=== PATIENT | male | born 1945 | race Caucasian/White ===

== ENCOUNTER 2018-12-31 09:22 | Day surgery (SDC) | payer MEDICARE ==
[~2018-12-31 09:22] MED LIST: FURO20TA4 PO; OMEP20TA25 PO; SIMV10TA97 PO; WARF3TAB59 PO; WARF6TAB49 PO
[2018-12-31 10:15] LABS: HEMATOCRIT 32.4 % (42-54); MEAN CORPUSCULAR HGB CONC 33.5 g/dL (32.0-36.0); MEAN CORPUSCULAR VOLUME 92.5 fL (79-99); PLATELET COUNT (AUTO) 425 K/uL (130-400); RED CELL DISTRIBUTION WIDTH 14.7 % (11.0-15.5); WHITE BLOOD COUNT (AUTO) 4.4 K/uL (4.8-10.8)
[2018-12-31 10:26] LABS: INR 1.05 (0.85-1.15); PARTIAL THROMBOPLASTIN TIME 34.2 SEC (26.3-35.5)
--- NOTE | 2018-12-31 12:45 | NUR ---
CT GD LT LUNG BX PROCEDURE PERFORMED BY DR Sheri NEGRON. PUNCTURE SITE LT LOWER BACK AND PATIENT TOLERATED PROCEDURE WELL. SPECIMEN X 3 COLLECTED AND SENT TO LAB. END OF PROCEDURE AT 1230. BIOPSY NEEDLE REMOVED AND DRESSING APPLIED. NO BLEEDING NOTED. REPORT GIVEN TO Valerie CORDOVA RN AND PATIENT TRANSPORTED TO DAY PATIENT RM 7 VIA BED T 1245. AAO X3 WITH NO C/O PAIN.
== END 2018-12-31 14:40 | disposition home or self-care (01) ==
LOC: DAH 09:22 → EDSTATUS 10:00 → DAH 14:40
PROVIDERS: ATTEND Internal Medicine Hematology & Oncology
DX: C34.12 Malignant neoplasm of upper lobe, left bronchus or lung (principal); N40.0 Benign prostatic hyperplasia without lower urinary tract symptoms; C62.90 Malignant neoplasm of unspecified testis, unspecified whether descended or undescended; C61 Malignant neoplasm of prostate; I82.402 Acute embolism and thrombosis of unspecified deep veins of left lower extremity; Z98.890 Other specified postprocedural states; Z79.899 Other long term (current) drug therapy; Z80.51 Family history of malignant neoplasm of kidney; Z80.42 Family history of malignant neoplasm of prostate; Z82.49 Family history of ischemic heart disease and other diseases of the circulatory system
CPT/HCPCS: 32405; 36415; 77012; 85027; 85610; 85730; 88305; A4215; A4221; A4222; A4223; A4663

== ENCOUNTER 2019-05-03 18:22 | Inpatient (IN) | payer MEDICARE ==
[~2019-05-03] VITALS: Ht 182.9 cm; Wt 64.0 kg
[2019-05-03] MEDS ORDERED: ZOSYN 3.375GM+NS 50ML 50 ML IV ONE ×2 (19:21→19:30)
[2019-05-03] MEDS ORDERED: VANCOMYCIN 1GM+NS 250ML 250 ML IV ONE (19:21)
[2019-05-03 19:25] LABS: HEMATOCRIT 25.1 % (42-54); LYMPHOCYTES % (AUTO) 13.2 % (21.0-51.0); MEAN CORPUSCULAR HEMOGLOBIN 33.9 pg (27.0-33.0); MEAN CORPUSCULAR HGB CONC 33.5 g/dL (32.0-36.0); MEAN CORPUSCULAR VOLUME 101.2 fL (79-99); MONOCYTES % (AUTO) 0.9 % (3.0-13.0); NEUTROPHILS % (AUTO) 74.9 % (40.0-77.0); PLATELET COUNT (AUTO) 424 K/uL (130-400); RED BLOOD CELL COUNT(AUTO) 2.48 MIL/uL (4.50-6.20); RED CELL DISTRIBUTION WIDTH 19.1 % (11.0-15.5); WHITE BLOOD COUNT (AUTO) 2.3 K/uL (4.8-10.8)
[2019-05-03 19:30] LABS: ALBUMIN 2.5 g/dL (3.5-5.0); BILIRUBIN,TOTAL 0.4 mg/dL (0.2-1.0); CREATININE 0.9 mg/dL (0.5-1.5); TOTAL PROTEIN, SERUM 6.2 g/dL (6.0-8.3)
[2019-05-03 19:34] LABS: INR 1.88 (0.85-1.15); PARTIAL THROMBOPLASTIN TIME 44.1 SEC (26.3-35.5); PROTHROMBIN TIME 19.8 SEC (9.6-11.6)
[2019-05-03] MEDS ORDERED: IPRATROPIUM/ALBUTEROL SULFATE 3 ML SOLUTION IH ONE (19:50)
[2019-05-03] MEDS ORDERED: POTASSIUM BICARB/CIT AC 25 MEQ TABLET.EFF ONE (20:00)
[2019-05-03 20:03] LABS: BAND NEUTROPHILS % (MANUAL) 3 % (0-2); LYMPHOCYTES % (MANUAL) 15 % (22-44); MAN.DIFF COMMENT-IMPRESSION MANUAL DIFFERENTIAL; MONOCYTES % (MANUAL) 2 % (2-9); SEGMENTED NEUTROPHILS % 80 % (40-70)
[2019-05-03 20:04] LABS: PLATELET MORPHOLOGY COMMENT ADEQUATE
[2019-05-03 20:11] LABS: ABG HCO3 23.6 mmol/L (21.0-28.0); ABG OXYGEN SATURATION 82.5 % (95.0-99.0); ABG PCO2 36 mmHg (35-48)
[2019-05-03] MEDS ORDERED: DILTIAZEM HCL 125 MG/25 ML VIAL IV ONE (20:30)
[2019-05-03] MEDS ORDERED: SODIUM CHLORIDE 0.9% 100 ML IV ONE (20:31)
[2019-05-03] MEDS: LEVOFLOXACIN 750 MG/D5W 150 ML 150 ML IV SCH (21:00)
[2019-05-03] MEDS ORDERED: SODIUM CHLORIDE 0.9% 1000ML 1,000 ML IV SCH (21:15)
[2019-05-03] MEDS ORDERED: AMIODARONE HCL 150 MG in DEXTROSE 5%-WATER 100 ML IV SCH (21:15)
[2019-05-03] MEDS ORDERED: AMIODARONE HCL 360 MG in DEXTROSE 5%-WATER 200 ML IV SCH (21:15)
[2019-05-03] MEDS ORDERED: AMIODARONE HCL 50 MG/ML 3 ML VIAL ONE (21:24)
[2019-05-03 23:26] LABS: HEMATOCRIT 22.4 % (42-54)
[2019-05-03 23:38] LABS: MAGNESIUM 1.1 mg/dL (1.80-2.40)
[2019-05-04] VITALS (16 sets, daily range): BP systolic 107–150; BP diastolic 44–81
[2019-05-04] MEDS ORDERED: LIDOCAINE HCL-MPF 1% 2ML VIAL ONE ×2 (00:56→05:40)
[2019-05-04] MEDS ORDERED: POTASSIUM CHLORIDE 20MEQ/100ML 100 ML IV ONE (00:56)
[2019-05-04 00:58] LABS: ABG HCO3 25.8 mmol/L (21.0-28.0); ABG OXYGEN SATURATION 97.1 % (95.0-99.0); ABG PCO2 38 mmHg (35-48)
[2019-05-04] MEDS ORDERED: IPRATROPIUM 0.5 MG/2.5 ML INH IH ONE ×2 (01:09→09:45)
[2019-05-04 01:40] LABS: APPEARANCE,URINE Cloudy (CLEAR); BILIRUBIN,URINE Negative (NEGATIVE); COLOR,URINE Yellow (YELLOW); GLUCOSE, URINE (UA) Negative (NEGATIVE); KETONES,URINE Negative (NEGATIVE); LEUKOCYTE ESTERASE ,URINE Negative (NEGATIVE); NITRATE,URINE Negative (NEGATIVE); OCCULT BLOOD,URINE Negative (NEGATIVE); PROTEIN,URINE POS 1+ mg/dL (NEGATIVE); UROBILINOGEN,URINE 0.2 mg/dL (0.2-1.0)
[2019-05-04 01:48] LABS: BACTERIA,URINE Few /HPF (None Seen); MUCUS,URINE Few LPF (None Seen); RBC,URINE 0-1 /HPF (0-1); SQUAMOUS EPITHELIAL CELL,UR 0-2 /HPF (0-2); WBC,URINE 0-1 /HPF (0-1)
[2019-05-04] MEDS ORDERED: LEVOFLOXACIN 750 MG/D5W 150 ML 150 ML ONE (02:54)
[2019-05-04] MEDS ORDERED: ZOSYN 3.375GM+NS 50ML 50 ML IV SCH (03:00)
[2019-05-04] MEDS ORDERED: AMIODARONE HCL 450 MG in DEXTROSE 5%-WATER 250 ML IV SCH (03:00)
[2019-05-04] MEDS ORDERED: MAGNESIUM 2GM PREMIX 50ML 50 ML IV ONE ×2 (03:01→10:33)
[2019-05-04 05:19] LABS: BASOPHILS % (AUTO) 1.3 % (0.0-5.0); LYMPHOCYTES % (AUTO) 23.1 % (21.0-51.0); MEAN CORPUSCULAR HGB CONC 32.8 g/dL (32.0-36.0); MEAN CORPUSCULAR VOLUME 100.5 fL (79-99); MONOCYTES % (AUTO) 3.8 % (3.0-13.0); NEUTROPHILS % (AUTO) 46.2 % (40.0-77.0); PLATELET COUNT (AUTO) 322 K/uL (130-400); RED CELL DISTRIBUTION WIDTH 19.2 % (11.0-15.5)
[2019-05-04 05:34] LABS: ALBUMIN 1.8 g/dL (3.5-5.0); BILIRUBIN,TOTAL 0.2 mg/dL (0.2-1.0); CREATININE 0.5 mg/dL (0.5-1.5); MAGNESIUM 1.5 mg/dL (1.80-2.40); PHOSPHORUS 1.9 mg/dL (2.5-4.9); TOTAL PROTEIN, SERUM 4.9 g/dL (6.0-8.3)
[2019-05-04 05:36] LABS: POTASSIUM 2.7 mmol/L (3.5-5.1)
[2019-05-04 05:38] LABS: HEMATOCRIT 20.1 % (42-54); WHITE BLOOD COUNT (AUTO) 0.8 K/uL (4.8-10.8)
[2019-05-04] MEDS ORDERED: POTASSIUM CHLORIDE 10MEQ/100ML 100 ML IV ONE ×4 (05:39→14:39)
[2019-05-04] MEDS ORDERED: ZOSYN 3.375GM+NS 50ML 50 ML IV ONE (05:54)
[2019-05-04] MEDS ORDERED: POTASSIUM PHOSPHATE 20 MMOL in SODIUM CHLORIDE 0.9% 250 ML IV SCH (07:15)
[2019-05-04] MEDS ORDERED: SODIUM CHLORIDE 0.9% 250 ML IV ONE ×2 (08:41→12:39)
[2019-05-04] MEDS ORDERED: POLYETHYLENE GLYCOL 3350 17 GM POWD.PACK PO SCH (09:00)
[2019-05-04] MEDS ORDERED: IPRATROPIUM/ALBUTEROL SULFATE 3 ML SOLUTION IH SCH (12:00)
[2019-05-04] MEDS ORDERED: SODIUM CHLORIDE 0.9% 1000ML 1,000 ML IV ONE (14:50)
[2019-05-04] MEDS ORDERED: ACETAMINOPHEN 325 MG TAB PO PRN (15:30)
[2019-05-04] MEDS ORDERED: ACETAMINOPHEN-CODEINE 300/30MG TAB PO PRN (15:30)
[2019-05-04] MEDS ORDERED: ONDANSETRON HCL 4 MG/2 ML VIAL IVP PRN (15:30)
[2019-05-04] MEDS: SODIUM CHLORIDE 0.9% 1000ML 1,000 ML IV SCH ×2 (15:30→20:11)
[2019-05-04] MEDS ORDERED: GLUCAGON 1MG KIT 1 MG ML IM PRN (15:30)
[2019-05-04] MEDS ORDERED: DEXTROSE 50%-WATER 50 ML DISP.SYRIN IV PRN (15:30)
[2019-05-04] MEDS ORDERED: VANCOMYCIN PROTOCOL PER PHARMACY IV SCH (15:30)
[2019-05-04] MEDS ORDERED: HYDRALAZINE HCL 20 MG/ML VIAL IV PRN (15:30)
[2019-05-04] MEDS ORDERED: MAGNESIUM 2GM PREMIX 50ML 50 ML IV PRN (15:30)
[2019-05-04] MEDS ORDERED: IPRATROPIUM/ALBUTEROL SULFATE 3 ML SOLUTION IH PRN (15:30)
[2019-05-04] MEDS ORDERED: LACTULOSE 20 GM/30 ML UDCUP PO PRN (15:30)
[2019-05-04] MEDS: ZOSYN 3.375GM+NS 50ML 50 ML IV SCH ×3 (15:30→23:51)
[2019-05-04] MEDS ORDERED: ENOXAPARIN SODIUM 40 MG/0.4 ML SYRINGE SQ ONE (15:48)
[2019-05-04] MEDS ORDERED: CEFEPIME HCL 2 GM VIAL ONE (15:48)
[2019-05-04] MEDS ORDERED: SODIUM CHLORIDE 0.9% 100 ML IV ONE (15:50)
[2019-05-04] MEDS ORDERED: CEFEPIME HCL 2 GM VIAL IVP SCH (16:00)
[2019-05-04] MEDS ORDERED: ENOXAPARIN SODIUM 40 MG/0.4 ML SYRINGE SQ SCH (16:24)
[2019-05-04] MEDS: INSULIN HUMULIN R 100 UNIT/ML 3ML SQ SCH ×2 (16:30→20:12)
[2019-05-04] MEDS ORDERED: LIDOCAINE HCL-MPF 1% 2ML VIAL IV PRN (17:15)
--- NOTE | 2019-05-04 17:26 | NUR ---
patient not given miralax due to patient having diarrhea; dowel maker junito enriquez notified
[2019-05-04] MEDS ORDERED: DEXMEDETOMIDINE HCL 200 MCG in SODIUM CHLORIDE 0.9% 50 ML IV SCH (17:45)
[2019-05-04] MEDS ORDERED: PHARMACY COMMUNICATION MISC SCH (17:45)
[2019-05-04] MEDS ORDERED: COMPOUND PO MISCELLANEOUS 1 EACH MISC MISC PRN (18:00)
[2019-05-04] MEDS: VANCOMYCIN 1GM+NS 250ML 250 ML IV SCH (18:13)
[2019-05-04] MEDS: METRONIDAZOLE 500MG/100ML BAG 100 ML IV SCH (18:14)
[2019-05-04] MEDS: VANCOMYCIN 250MG/5ML ORAL SOLUTION 40ML PO SCH ×2 (18:45)
[2019-05-04 19:29] LABS: HEMATOCRIT 28.9 % (42-54)
[2019-05-04] MEDS ORDERED: SODIUM CHLORIDE 0.9% 500ML 500 ML IV ONE (19:42)
[2019-05-04] MEDS: POTASSIUM CHLORIDE 20 MEQ ERTAB PO PRN (20:11)
[2019-05-04] MEDS ORDERED: PHYTONADIONE 10 MG/1 ML AMP IV SCH (21:00)
[2019-05-04] MEDS: PHYTONADIONE 10 MG in SODIUM CHLORIDE 0.9% 50 ML SQ SCH (21:26)
[2019-05-04] MEDS: LEVOFLOXACIN 750 MG/D5W 150 ML 150 ML IV SCH (21:42)
[2019-05-04] MEDS ORDERED: FUROSEMIDE 10 MG/ML 4ML VIAL IV SCH (23:30)
[2019-05-05] VITALS (45 sets, daily range): BP systolic 77–128; BP diastolic 42–95
[2019-05-05] MEDS: VANCOMYCIN 250MG/5ML ORAL SOLUTION 40ML PO SCH ×10 (00:01→23:19)
[2019-05-05] MEDS: POTASSIUM CHLORIDE 20 MEQ ERTAB PO PRN ×4 (00:48→09:09)
[2019-05-05] MEDS: METRONIDAZOLE 500MG/100ML BAG 100 ML IV SCH ×3 (01:32→17:35)
[2019-05-05] MEDS ORDERED: FUROSEMIDE 10 MG/ML 4ML VIAL ONE (03:46)
[2019-05-05 04:24] LABS: MEAN CORPUSCULAR HEMOGLOBIN 32.6 pg (27.0-33.0); MEAN CORPUSCULAR HGB CONC 34.3 g/dL (32.0-36.0); PLATELET COUNT (AUTO) 271 K/uL (130-400); RED BLOOD CELL COUNT(AUTO) 2.21 MIL/uL (4.50-6.20); RED CELL DISTRIBUTION WIDTH 21.2 % (11.0-15.5)
[2019-05-05 05:06] LABS: WHITE BLOOD COUNT (AUTO) 1.1 K/uL (4.8-10.8)
[2019-05-05 05:17] LABS: CREATININE 0.5 mg/dL (0.5-1.5); MAGNESIUM 1.5 mg/dL (1.80-2.40); PHOSPHORUS 1.6 mg/dL (2.5-4.9)
[2019-05-05 05:22] LABS: POTASSIUM 2.4 mmol/L (3.5-5.1)
[2019-05-05] MEDS: POTASSIUM CHLORIDE 20MEQ/100ML 100 ML IV PRN ×3 (05:35→20:04)
[2019-05-05] MEDS: POTASSIUM CHLORIDE 10% ELIXIR 20 MEQ/15 ML UDCUP PO PRN ×2 (05:35→20:14)
[2019-05-05] MEDS: INSULIN HUMULIN R 100 UNIT/ML 3ML SQ SCH ×4 (07:30→20:15)
[2019-05-05] MEDS: ZOSYN 3.375GM+NS 50ML 50 ML IV SCH ×3 (09:06→23:19)
[2019-05-05] MEDS: SODIUM CHLORIDE 0.9% 1000ML 1,000 ML IV SCH ×2 (09:06→20:15)
[2019-05-05] MEDS: VANCOMYCIN 1GM+NS 250ML 250 ML IV SCH ×2 (09:10→20:04)
[2019-05-05] MEDS: PANTOPRAZOLE SODIUM 40 MG TABLET.DR PO SCH (09:11)
[2019-05-05 10:15] LABS: HEMATOCRIT 26.3 % (42-54)
[2019-05-05 10:35] LABS: ABG BASE EXCESS 8.7 mmol/L (-2.0-3.0); ABG OXYGEN SATURATION 99.2 % (95.0-99.0); ABG PCO2 39 mmHg (35-48)
[2019-05-05] MEDS: TBO-FILGRASTIM 480 MCG/0.8 ML ML SQ SCH (11:02)
[2019-05-05] MEDS ORDERED: AMIODARONE HCL 200 MG TABLET PO SCH (13:00)
[2019-05-05] MEDS ORDERED: POTASSIUM PHOS 15 mMOL+NS250ML 250 ML IV ONE (14:00)
[2019-05-05] MEDS ORDERED: FOLI1 PO (14:18)
[2019-05-05] MEDS ORDERED: WARF3TAB59 PO (14:18)
[2019-05-05] MEDS ORDERED: WARF6TAB49 PO (14:18)
[2019-05-05] MEDS ORDERED: OMEP20TA25 PO (14:18)
[2019-05-05] MEDS ORDERED: FURO20TA4 PO (14:18)
[2019-05-05] MEDS: DOXYCYCLINE 100MG+NS 250ML 250 ML IV SCH (16:04)
[2019-05-05] MEDS: SPIRONOLACTONE 25 MG TAB PO SCH ×2 (16:05→20:14)
--- NOTE | 2019-05-05 16:49 | NUR ---
INITIAL: Chart reviewed. pt currently in isolation, EC is friend Allan Cruz. Per Mr Cruz pt lives alone in a first floor triplex @ [facility]. Prior to admission was independent and not using any DME. Per Mr Cruz, friends and neighbors assist Mr Eric mccormick transportation and grocery shopping if needed. Pt does have a sister Effie in [place] but they do not communicate. pt currently DNR/DNI. CM to continue to follow pt's progress. Addendum: 05/05/19 at 1657 by HIMANSHU CLARKE Amended: Links added.
[2019-05-05] MEDS: IPRATROPIUM 0.5 MG/2.5 ML INH IH SCH (18:00)
[2019-05-05 19:20] LABS: MAGNESIUM 1.8 mg/dL (1.80-2.40)
[2019-05-05 19:23] LABS: POTASSIUM 2.3 mmol/L (3.5-5.1)
[2019-05-05 19:27] LABS: HEMATOCRIT 24.5 % (42-54)
[2019-05-05] MEDS: PHYTONADIONE 10 MG in SODIUM CHLORIDE 0.9% 50 ML SQ SCH (20:13)
[2019-05-05] MEDS: MAGNESIUM 2GM PREMIX 50ML 50 ML IV SCH (20:13)
[2019-05-05] MEDS: AMIODARONE HCL 200 MG TABLET PO SCH (20:14)
[2019-05-05] MEDS: POTASSIUM CHLORIDE 40 MEQ in SODIUM CHLORIDE 0.9% 1000ML 980 ML IV SCH ×2 (20:45→22:15)
[2019-05-06] VITALS (22 sets, daily range): BP systolic 122–158; BP diastolic 56–89
[2019-05-06 00:23] LABS: MAGNESIUM 2.2 mg/dL (1.80-2.40)
[2019-05-06 00:29] LABS: POTASSIUM 2.9 mmol/L (3.5-5.1)
[2019-05-06 00:35] LABS: HEMATOCRIT 23.8 % (42-54)
[2019-05-06] MEDS: DOXYCYCLINE 100MG+NS 250ML 250 ML IV SCH ×2 (02:00→12:42)
[2019-05-06] MEDS: METRONIDAZOLE 500MG/100ML BAG 100 ML IV SCH ×3 (02:11→17:07)
[2019-05-06] MEDS: VANCOMYCIN 250MG/5ML ORAL SOLUTION 40ML PO SCH ×6 (05:55→17:07)
[2019-05-06] MEDS: POTASSIUM CHLORIDE 40 MEQ in SODIUM CHLORIDE 0.9% 1000ML 980 ML IV SCH ×2 (05:56→17:07)
[2019-05-06] MEDS: IPRATROPIUM 0.5 MG/2.5 ML INH IH SCH ×4 (06:00→23:38)
[2019-05-06] MEDS: INSULIN HUMULIN R 100 UNIT/ML 3ML SQ SCH ×4 (06:56→21:00)
[2019-05-06 08:27] LABS: BASOPHILS % (AUTO) 0.4 % (0.0-5.0); EOSINOPHILS % (AUTO) 0.1 % (0.0-8.0); HEMATOCRIT 24.1 % (42-54); LYMPHOCYTES % (AUTO) 3.3 % (21.0-51.0); MEAN CORPUSCULAR HEMOGLOBIN 32.5 pg (27.0-33.0); MEAN CORPUSCULAR HGB CONC 33.6 g/dL (32.0-36.0); MEAN CORPUSCULAR VOLUME 96.8 fL (79-99); NEUTROPHILS % (AUTO) 90.4 % (40.0-77.0); PLATELET COUNT (AUTO) 232 K/uL (130-400); RED BLOOD CELL COUNT(AUTO) 2.49 MIL/uL (4.50-6.20); RED CELL DISTRIBUTION WIDTH 21.4 % (11.0-15.5); WHITE BLOOD COUNT (AUTO) 10.7 K/uL (4.8-10.8)
[2019-05-06 08:43] LABS: CREATININE 0.4 mg/dL (0.5-1.5); MAGNESIUM 1.6 mg/dL (1.80-2.40); PHOSPHORUS 1.6 mg/dL (2.5-4.9)
[2019-05-06 08:49] LABS: POTASSIUM 2.6 mmol/L (3.5-5.1)
[2019-05-06] MEDS: POTASSIUM CHLORIDE 20 MEQ ERTAB PO PRN (08:55)
[2019-05-06] MEDS: POTASSIUM CHLORIDE 20MEQ/100ML 100 ML IV PRN (08:56)
[2019-05-06] MEDS: ZOSYN 3.375GM+NS 50ML 50 ML IV SCH ×2 (08:56→17:07)
[2019-05-06] MEDS: PANTOPRAZOLE SODIUM 40 MG TABLET.DR PO SCH (08:56)
[2019-05-06] MEDS: SPIRONOLACTONE 25 MG TAB PO SCH ×2 (08:57→21:26)
[2019-05-06] MEDS: FLUCONAZOLE 400 MG/NS 200 ML 200 ML IV SCH (08:57)
[2019-05-06] MEDS: AMIODARONE HCL 200 MG TABLET PO SCH ×2 (08:58→21:26)
[2019-05-06] MEDS ORDERED: POTASSIUM PHOS 15 mMOL+NS250ML 250 ML IV PRN ×2 (09:30→13:15)
[2019-05-06] MEDS: VANCOMYCIN 1GM+NS 250ML 250 ML IV SCH ×2 (09:35→21:26)
[2019-05-06] MEDS: TBO-FILGRASTIM 480 MCG/0.8 ML ML SQ SCH (09:51)
[2019-05-06] MEDS: LACTOBACILLUS RHAMNOSUS GG 1 EACH CAP.SPRINK PO SCH ×2 (17:06→21:27)
[2019-05-06 18:53] LABS: MAGNESIUM 1.8 mg/dL (1.80-2.40)
[2019-05-06] MEDS: PHYTONADIONE 10 MG in SODIUM CHLORIDE 0.9% 50 ML SQ SCH (21:28)
[2019-05-07] VITALS (14 sets, daily range): BP systolic 118–162; BP diastolic 53–104
[2019-05-07] MEDS: ZOSYN 3.375GM+NS 50ML 50 ML IV SCH ×3 (00:12→14:45)
[2019-05-07] MEDS: VANCOMYCIN 250MG/5ML ORAL SOLUTION 40ML PO SCH ×10 (00:12→23:49)
[2019-05-07] MEDS: METRONIDAZOLE 500MG/100ML BAG 100 ML IV SCH ×3 (00:13→16:26)
[2019-05-07] MEDS: DOXYCYCLINE 100MG+NS 250ML 250 ML IV SCH ×2 (00:13→14:38)
[2019-05-07] MEDS: POTASSIUM CHLORIDE 40 MEQ in SODIUM CHLORIDE 0.9% 1000ML 980 ML IV SCH ×3 (01:20→23:49)
[2019-05-07 04:00] LABS: ABG BASE EXCESS 6.9 mmol/L (-2.0-3.0); ABG HCO3 30.8 mmol/L (21.0-28.0); ABG OXYGEN SATURATION 96.5 % (95.0-99.0); ABG PCO2 41 mmHg (35-48)
[2019-05-07 04:42] LABS: BASOPHILS % (AUTO) 0.4 % (0.0-5.0); EOSINOPHILS % (AUTO) 0.1 % (0.0-8.0); HEMATOCRIT 25.8 % (42-54); LYMPHOCYTES % (AUTO) 2.7 % (21.0-51.0); MEAN CORPUSCULAR HEMOGLOBIN 32.7 pg (27.0-33.0); MEAN CORPUSCULAR HGB CONC 33.7 g/dL (32.0-36.0); MONOCYTES % (AUTO) 3.3 % (3.0-13.0); NEUTROPHILS % (AUTO) 86.2 % (40.0-77.0); PLATELET COUNT (AUTO) 187 K/uL (130-400); RED BLOOD CELL COUNT(AUTO) 2.66 MIL/uL (4.50-6.20); RED CELL DISTRIBUTION WIDTH 20.9 % (11.0-15.5); WHITE BLOOD COUNT (AUTO) 18.8 K/uL (4.8-10.8)
[2019-05-07 05:23] LABS: ALBUMIN 1.9 g/dL (3.5-5.0); BILIRUBIN,TOTAL 0.5 mg/dL (0.2-1.0); CREATININE 0.5 mg/dL (0.5-1.5); MAGNESIUM 1.4 mg/dL (1.80-2.40); TOTAL PROTEIN, SERUM 5.4 g/dL (6.0-8.3)
[2019-05-07 05:26] LABS: POTASSIUM 2.5 mmol/L (3.5-5.1)
[2019-05-07] MEDS: POTASSIUM CHLORIDE 20 MEQ ERTAB PO PRN ×2 (05:37→05:38)
[2019-05-07] MEDS: POTASSIUM CHLORIDE 20MEQ/100ML 100 ML IV PRN ×2 (05:38→09:03)
[2019-05-07] MEDS: IPRATROPIUM 0.5 MG/2.5 ML INH IH SCH ×3 (06:00→18:00)
[2019-05-07] MEDS: INSULIN HUMULIN R 100 UNIT/ML 3ML SQ SCH ×4 (07:30→20:33)
[2019-05-07] MEDS: MAGNESIUM 4GM PREMIX 100ML 100 ML IV PRN (08:05)
[2019-05-07] MEDS: FLUCONAZOLE 400 MG/NS 200 ML 200 ML IV SCH (08:05)
[2019-05-07] MEDS: AMIODARONE HCL 200 MG TABLET PO SCH ×2 (09:04→20:46)
[2019-05-07] MEDS: SPIRONOLACTONE 25 MG TAB PO SCH ×2 (09:04→20:45)
[2019-05-07] MEDS: LACTOBACILLUS RHAMNOSUS GG 1 EACH CAP.SPRINK PO SCH ×3 (09:04→20:46)
[2019-05-07] MEDS: PANTOPRAZOLE SODIUM 40 MG TABLET.DR PO SCH (09:05)
[2019-05-07] MEDS: TBO-FILGRASTIM 480 MCG/0.8 ML ML SQ SCH (09:06)
[2019-05-07] MEDS ORDERED: COMPOUND IV REFRIGERATED 1 EACH IVSOLN MISC PRN (12:15)
[2019-05-07] MEDS: VANCOMYCIN 1.25 GM in SODIUM CHLORIDE 0.9% 250 ML IV SCH ×2 (12:50→23:49)
[2019-05-07] MEDS ORDERED: POTASSIUM PHOS 15 mMOL+NS250ML 250 ML IV PRN (13:30)
--- NOTE | 2019-05-07 13:32 | NUR ---
NUTRITION RECOMMENDATIONS. Pt on isolation precautions. He is positive for C. Diff. S/P Chemo on 04/30/19. Diet: regular. PO intake <25% and has poor appetite. RD unable to determine significant weight changes at this time. RD unable to determine malnutrition status at this time. Labs and meds reviewed. Stage II buttocks ulcer noted. RD recommends to add Ensure TID to diet order Monitor po intake and tolerance to po textures Add Berto and Promod BID - aid wound healing Recommend 500mg Vitamin C BID - aid wound healing Recommend 220mg Zinc sulfate - aid wound healing Monitor weight changes RD will continue to monitor and follow up, thank you. Addendum: 05/07/19 at [address] Amended: Links added.
--- NOTE | 2019-05-07 16:18 | NUR ---
Not able to give patient BPCI Letter, Patient is on Isolation.
[2019-05-07] MEDS: POTASSIUM CHLORIDE 10% ELIXIR 20 MEQ/15 ML UDCUP PO SCH ×2 (16:25→20:45)
--- NOTE | 2019-05-07 16:30 | NUR ---
[facility] consult Spoke with patient's nurse, Ashley, and advised her of recommendations based on consultation with her. [facility] may be reconsulted prn.
--- NOTE | 2019-05-07 21:18 | NUR ---
PATIENT TRANSFERRED FROM ICU RM 215, ON ISOLATION, VITAL SIGNS ARE STABLE. HE HAS NO COMPLAINS OF BEING IN DISTRESS OR IN ANY FORMS OF PAIN. SUCTION HAS ALSO BEEN SET UP. WILL CONTINUE TO MONITOR.
--- NOTE | 2019-05-07 23:00 | NUR ---
AUDIO SPECIALIST CALLED PATIENTS HR IS AT 170'S, PATIENT IS STABLE, DOES NOT COMPLAIN OF BEING IN DISTRESS BUT STATES HE IS IN PAIN, OFFERED HIM PAIN MEDICATION BUT HE REFUSED SAYS HE IS NOT USED TO TAKING PAIN MEDICATION. REPOSITIONED HIM FOR COMFORT. WILL MONITOR
[2019-05-08] VITALS (7 sets, daily range): BP systolic 113–150; BP diastolic 54–77
[2019-05-08] MEDS: ZOSYN 3.375GM+NS 50ML 50 ML IV SCH ×4 (01:43→21:27)
[2019-05-08] MEDS: DOXYCYCLINE 100MG+NS 250ML 250 ML IV SCH (02:53)
[2019-05-08] MEDS: METRONIDAZOLE 500MG/100ML BAG 100 ML IV SCH (03:00)
[2019-05-08 04:57] LABS: HEMATOCRIT 26.8 % (42-54); MEAN CORPUSCULAR HEMOGLOBIN 31.7 pg (27.0-33.0); MEAN CORPUSCULAR HGB CONC 32.8 g/dL (32.0-36.0); MEAN CORPUSCULAR VOLUME 96.4 fL (79-99); PLATELET COUNT (AUTO) 141 K/uL (130-400); RED BLOOD CELL COUNT(AUTO) 2.78 MIL/uL (4.50-6.20); WHITE BLOOD COUNT (AUTO) 22.5 K/uL (4.8-10.8)
[2019-05-08 05:13] LABS: BAND NEUTROPHILS % (MANUAL) 33 % (0-2); CREATININE 0.4 mg/dL (0.5-1.5); LYMPHOCYTES % (MANUAL) 1 % (22-44); MAGNESIUM 1.2 mg/dL (1.80-2.40); MAN.DIFF COMMENT-IMPRESSION MANUAL DIFFERENTIAL; MONOCYTES % (MANUAL) 5 % (2-9); PHOSPHORUS 2.2 mg/dL (2.5-4.9); SEGMENTED NEUTROPHILS % 61 % (40-70)
[2019-05-08 05:14] LABS: PLATELET MORPHOLOGY COMMENT ADEQUATE
[2019-05-08 05:47] LABS: POTASSIUM 2.1 mmol/L (3.5-5.1)
--- NOTE | 2019-05-08 06:08 | NUR ---
WAS NOT ABLE TO ADMINISTER VANCO ORAL TO PATIENT THERE IS NO AVAILABLE MED, INFORMED SHANELLE FROM PHARMACY, SAYS HE WILL WORK ON IT. WILL PASS TO THE AM NURSE
[2019-05-08] MEDS: INSULIN HUMULIN R 100 UNIT/ML 3ML SQ SCH ×4 (06:29→21:00)
[2019-05-08] MEDS: VANCOMYCIN 250MG/5ML ORAL SOLUTION 40ML PO SCH ×8 (07:08→23:53)
--- NOTE | 2019-05-08 07:30 | NUR ---
ASSESSMENT ENCOUNTERED PT A&OX3, CALM COOPERATIVE AND DOES NOT APPEAR TO BE IN ANY DISTRESS NOR ANY NEURO DEFICITS PRESENT. PT DENIES PAIN, SOB, NAUSEA BUT DOES C/O DIARRHEA. PT IS ABLE TO TOLERATE FOODS, FLUIDS AND MEDICATION WITH NO THROAT CLEARING OR COUGH. PICC LINE WITH 3 PORTS PATENT. CALL LIGHT WITHIN REACH.
--- NOTE | 2019-05-08 07:35 | NUR ---
DR ALE JIM UPDATED, ORDERS RECEIVED TO NOTIFY HIM IF SUSTAINED SVT FOR MORE THAN 2 MINUTES.
[2019-05-08] MEDS: MAGNESIUM 2GM PREMIX 50ML 50 ML IV SCH (07:41)
[2019-05-08] MEDS: POTASSIUM CHLORIDE 10% ELIXIR 20 MEQ/15 ML UDCUP PO SCH ×3 (09:00→21:25)
[2019-05-08] MEDS: POTASSIUM CHLORIDE 40 MEQ in SODIUM CHLORIDE 0.9% 1000ML 980 ML IV SCH ×2 (09:31→18:45)
[2019-05-08] MEDS: SPIRONOLACTONE 25 MG TAB PO SCH ×2 (09:33→21:30)
[2019-05-08] MEDS: LACTOBACILLUS RHAMNOSUS GG 1 EACH CAP.SPRINK PO SCH ×3 (09:33→21:27)
[2019-05-08] MEDS: AMIODARONE HCL 200 MG TABLET PO SCH ×2 (09:33→21:25)
[2019-05-08] MEDS: POTASSIUM CHLORIDE 20MEQ/100ML 100 ML IV PRN (09:33)
[2019-05-08] MEDS: PANTOPRAZOLE SODIUM 40 MG TABLET.DR PO SCH (09:33)
[2019-05-08] MEDS: FLUCONAZOLE 400 MG/NS 200 ML 200 ML IV SCH (09:34)
[2019-05-08] MEDS: ENOXAPARIN SODIUM 40 MG/0.4 ML SYRINGE SQ SCH (09:34)
[2019-05-08] MEDS: NEUTRA-PHOS PACKET 1 EACH PO SCH ×3 (09:55→21:30)
[2019-05-08] MEDS: POTASSIUM CHLORIDE 20 MEQ ERTAB PO SCH ×3 (09:55→19:54)
[2019-05-08] MEDS ORDERED: LOPERAMIDE HCL 2 MG CAP PO ONE (12:16)
[2019-05-08] MEDS: LOPERAMIDE HCL 2 MG CAP PO SCH ×2 (12:30→14:43)
[2019-05-08] MEDS ORDERED: POTASSIUM CHLORIDE 20 MEQ/100 ML BAG IV SCH (14:00)
[2019-05-08] MEDS: POTASSIUM CHLORIDE 20MEQ/100ML 100 ML IV SCH ×2 (14:15→19:51)
[2019-05-08] MEDS: VANCOMYCIN 1.25 GM in SODIUM CHLORIDE 0.9% 250 ML IV SCH (14:46)
[2019-05-08] MEDS: POTASSIUM CHLORIDE 10% ELIXIR 20 MEQ/15 ML UDCUP PO PRN (18:35)
[2019-05-08] MEDS: MAGNESIUM 4GM PREMIX 100ML 100 ML IV PRN (18:36)
[2019-05-08] MEDS ORDERED: MAGNESIUM 2GM PREMIX 50ML 50 ML IV SCH (18:45)
--- NOTE | 2019-05-08 18:45 | NUR ---
SVT HEART RATE 170 BEATS PER MINUTE FOR 15 SECONDS, PT IN SEMI CASSIDY'S POSITION, A&OX3, CALM COOPERATIVE AND DOES NOT APPEAR TO BE IN ANY DISTRESS. DR BARTLETT UPDATED, ORDERS RECEIVED.
[2019-05-08] MEDS ORDERED: PHARMACY COMMUNICATION MISC SCH (19:00)
[2019-05-09] MEDS: VANCOMYCIN 1.25 GM in SODIUM CHLORIDE 0.9% 250 ML IV SCH ×2 (00:17→13:00)
[2019-05-09] MEDS: POTASSIUM CHLORIDE 20MEQ/100ML 100 ML IV SCH ×3 (00:25→14:15)
[2019-05-09] MEDS: LOPERAMIDE HCL 2 MG CAP PO PRN ×4 (02:14→22:17)
[2019-05-09 03:56] VITALS: BP 117/76
[2019-05-09] MEDS: ZOSYN 3.375GM+NS 50ML 50 ML IV SCH ×3 (04:18→22:01)
[2019-05-09] MEDS: POTASSIUM CHLORIDE 40 MEQ in SODIUM CHLORIDE 0.9% 1000ML 980 ML IV SCH ×2 (04:18→09:21)
[2019-05-09 04:54] LABS: BASOPHILS % (AUTO) 0.2 % (0.0-5.0); HEMATOCRIT 24.2 % (42-54); LYMPHOCYTES % (AUTO) 6.1 % (21.0-51.0); MEAN CORPUSCULAR HEMOGLOBIN 32.9 pg (27.0-33.0); MEAN CORPUSCULAR HGB CONC 33.5 g/dL (32.0-36.0); MEAN CORPUSCULAR VOLUME 98.4 fL (79-99); MONOCYTES % (AUTO) 5.4 % (3.0-13.0); NEUTROPHILS % (AUTO) 86.6 % (40.0-77.0); PLATELET COUNT (AUTO) 132 K/uL (130-400); RED BLOOD CELL COUNT(AUTO) 2.46 MIL/uL (4.50-6.20); RED CELL DISTRIBUTION WIDTH 20.2 % (11.0-15.5); WHITE BLOOD COUNT (AUTO) 10.9 K/uL (4.8-10.8)
[2019-05-09 05:21] LABS: CREATININE 0.4 mg/dL (0.5-1.5); MAGNESIUM 1.7 mg/dL (1.80-2.40); PHOSPHORUS 2.9 mg/dL (2.5-4.9); POTASSIUM 3.4 mmol/L (3.5-5.1)
[2019-05-09] MEDS: VANCOMYCIN 250MG/5ML ORAL SOLUTION 40ML PO SCH ×6 (05:45→18:00)
[2019-05-09] MEDS: INSULIN HUMULIN R 100 UNIT/ML 3ML SQ SCH ×4 (06:44→21:00)
[2019-05-09] MEDS: MAGNESIUM 2GM PREMIX 50ML 50 ML IV SCH (07:13)
--- NOTE | 2019-05-09 08:00 | NUR ---
ASSESSMENT ENCOUNTERED PT A&OX3, CALM COOPERATIVE AND DOES NOT APPEAR TO BE IN ANY DISTRESS NOR ANY NEURO DEFICITS PRESENT. PT DENIES PAIN, SOB, NAUSEA BUT DOES C/O DIARRHEA. PT IS ABLE TO TOLERATE FOODS, FLUIDS AND MEDICATION WITH NO THROAT CLEARING OR COUGH. PICC LINE TO SOLO, SITE DRY AND INTACT. CALL LIGHT WITHIN REACH.
[2019-05-09] MEDS: AMIODARONE HCL 200 MG TABLET PO SCH ×2 (09:19→22:00)
[2019-05-09] MEDS: LACTOBACILLUS RHAMNOSUS GG 1 EACH CAP.SPRINK PO SCH ×3 (09:19→22:01)
[2019-05-09] MEDS: SPIRONOLACTONE 25 MG TAB PO SCH ×2 (09:20→22:01)
[2019-05-09] MEDS: POTASSIUM CHLORIDE 10% ELIXIR 20 MEQ/15 ML UDCUP PO SCH ×3 (09:20→22:00)
[2019-05-09] MEDS: FLUCONAZOLE 400 MG/NS 200 ML 200 ML IV SCH (09:20)
[2019-05-09] MEDS: PANTOPRAZOLE SODIUM 40 MG TABLET.DR PO SCH (09:22)
[2019-05-09] MEDS: ENOXAPARIN SODIUM 40 MG/0.4 ML SYRINGE SQ SCH (09:23)
[2019-05-09 09:30] VITALS: BP 134/52
--- NOTE | 2019-05-09 09:35 | NUR ---
PROBIOTIC/ NUTRITION RECOMMENDATIONS INTRODUCE FRIENDLY BACTERIA - CAN PURCHASE OVER THE COUNTER 1) FLORASTOR PROBIOTIC 2) CULTURELLE PROBIOTIC 3) BANATROL PLUS: SUPPLEMENT TO HELP CONTROL DIARRHEA NUTRITION RECOMMENDATIONS 1) EAT FOODS HIGH IN SOLUBLE/ FERMENTABLE FIBER - INTRODUCE FRIENDLY BACTERIA, FOODS SUCH >> OATMEAL, BEANS, PEAS, RICE BRAN, BARLEY, CITRUS FRUITS, STRAWBERRIES, APPLE PULP 2) BRAT FOODS RECOMMENDED SUCH >> BANANAS, RICE, APPLE SAUCE, TOAST - TO HELP EASE DIARRHEA 3) AVOID NUTS, SEEDS, HIGH INSOLUBLE FIBER CONTAINING FOODS, GREASY FOOD, GAS FORMING FOODS
[2019-05-09 11:53] VITALS: BP 100/63
[2019-05-09 16:26] VITALS: BP 109/71
[2019-05-09 19:57] VITALS: BP 111/63
[2019-05-09 23:38] VITALS: BP 134/76
[2019-05-10] MEDS: VANCOMYCIN 1.25 GM in SODIUM CHLORIDE 0.9% 250 ML IV SCH ×2 (00:03→12:25)
[2019-05-10] MEDS: POTASSIUM CHLORIDE 40 MEQ in SODIUM CHLORIDE 0.9% 1000ML 980 ML IV SCH ×3 (01:08→22:59)
[2019-05-10] MEDS: VANCOMYCIN 250MG/5ML ORAL SOLUTION 40ML PO SCH ×8 (01:08→17:52)
[2019-05-10 04:00] VITALS: BP 123/69
[2019-05-10 04:35] LABS: HEMATOCRIT 23.8 % (42-54); MEAN CORPUSCULAR HEMOGLOBIN 32.8 pg (27.0-33.0); MEAN CORPUSCULAR HGB CONC 32.8 g/dL (32.0-36.0); PLATELET COUNT (AUTO) 101 K/uL (130-400); RED BLOOD CELL COUNT(AUTO) 2.38 MIL/uL (4.50-6.20); RED CELL DISTRIBUTION WIDTH 19.9 % (11.0-15.5); WHITE BLOOD COUNT (AUTO) 5.6 K/uL (4.8-10.8)
[2019-05-10 04:48] LABS: CREATININE 0.4 mg/dL (0.5-1.5); MAGNESIUM 1.3 mg/dL (1.80-2.40); PHOSPHORUS 3.2 mg/dL (2.5-4.9); POTASSIUM 4.5 mmol/L (3.5-5.1)
[2019-05-10] MEDS: ZOSYN 3.375GM+NS 50ML 50 ML IV SCH ×3 (05:38→22:58)
[2019-05-10] MEDS: IPRATROPIUM 0.5 MG/2.5 ML INH IH SCH (06:00)
[2019-05-10] MEDS: INSULIN HUMULIN R 100 UNIT/ML 3ML SQ SCH ×4 (06:29→21:00)
[2019-05-10] MEDS: FLUCONAZOLE 400 MG/NS 200 ML 200 ML IV SCH (08:02)
[2019-05-10 08:03] VITALS: BP 133/80
[2019-05-10] MEDS: LACTOBACILLUS RHAMNOSUS GG 1 EACH CAP.SPRINK PO SCH ×3 (09:23→22:58)
[2019-05-10] MEDS: ENOXAPARIN SODIUM 40 MG/0.4 ML SYRINGE SQ SCH (09:23)
[2019-05-10] MEDS: PANTOPRAZOLE SODIUM 40 MG TABLET.DR PO SCH (09:24)
[2019-05-10] MEDS: SPIRONOLACTONE 25 MG TAB PO SCH ×2 (09:24→22:58)
[2019-05-10] MEDS: AMIODARONE HCL 200 MG TABLET PO SCH ×2 (09:24→22:58)
[2019-05-10] MEDS: POTASSIUM CHLORIDE 10% ELIXIR 20 MEQ/15 ML UDCUP PO SCH ×3 (09:26→21:00)
[2019-05-10] MEDS ORDERED: MAGNESIUM 2GM PREMIX 50ML 50 ML IV SCH (10:15)
[2019-05-10] MEDS: LOPERAMIDE HCL 2 MG CAP PO PRN ×3 (10:24→22:58)
[2019-05-10] MEDS: MAGNESIUM 2GM PREMIX 50ML 50 ML IV SCH ×2 (10:25→15:43)
[2019-05-10] MEDS ORDERED: IPRATROPIUM 0.5 MG/2.5 ML INH IH PRN (10:30)
[2019-05-10 11:39] VITALS: BP 124/72
[2019-05-10 16:58] VITALS: BP 131/72
[2019-05-10 20:22] VITALS: BP 124/67
[2019-05-11 00:21] VITALS: BP 105/56
[2019-05-11] MEDS: VANCOMYCIN 250MG/5ML ORAL SOLUTION 40ML PO SCH ×10 (01:00→22:35)
[2019-05-11] MEDS: LOPERAMIDE HCL 2 MG CAP PO PRN ×5 (01:43→22:32)
[2019-05-11] MEDS: VANCOMYCIN 1.25 GM in SODIUM CHLORIDE 0.9% 250 ML IV SCH ×3 (03:37→22:37)
[2019-05-11 03:38] VITALS: BP 112/59
[2019-05-11] MEDS: ZOSYN 3.375GM+NS 50ML 50 ML IV SCH ×3 (03:39→22:31)
[2019-05-11 04:10] LABS: HEMATOCRIT 22.9 % (42-54); MEAN CORPUSCULAR HGB CONC 31.9 g/dL (32.0-36.0); MEAN CORPUSCULAR VOLUME 100.4 fL (79-99); PLATELET COUNT (AUTO) 98 K/uL (130-400); RED BLOOD CELL COUNT(AUTO) 2.28 MIL/uL (4.50-6.20); RED CELL DISTRIBUTION WIDTH 19.5 % (11.0-15.5); WHITE BLOOD COUNT (AUTO) 4.4 K/uL (4.8-10.8)
[2019-05-11 04:32] LABS: CREATININE 0.4 mg/dL (0.5-1.5); PHOSPHORUS 3.7 mg/dL (2.5-4.9); POTASSIUM 4.5 mmol/L (3.5-5.1)
[2019-05-11] MEDS: POTASSIUM CHLORIDE 40 MEQ in SODIUM CHLORIDE 0.9% 1000ML 980 ML IV SCH ×3 (05:31→22:31)
[2019-05-11] MEDS: INSULIN HUMULIN R 100 UNIT/ML 3ML SQ SCH ×4 (05:31→21:00)
[2019-05-11 08:23] VITALS: BP 112/72
[2019-05-11] MEDS: LACTOBACILLUS RHAMNOSUS GG 1 EACH CAP.SPRINK PO SCH ×3 (09:13→22:32)
[2019-05-11] MEDS: SPIRONOLACTONE 25 MG TAB PO SCH ×2 (09:13→22:32)
[2019-05-11] MEDS: FLUCONAZOLE 400 MG/NS 200 ML 200 ML IV SCH (09:13)
[2019-05-11] MEDS: AMIODARONE HCL 200 MG TABLET PO SCH ×2 (09:13→22:32)
[2019-05-11] MEDS: PANTOPRAZOLE SODIUM 40 MG TABLET.DR PO SCH (09:13)
[2019-05-11] MEDS: POTASSIUM CHLORIDE 10% ELIXIR 20 MEQ/15 ML UDCUP PO SCH ×3 (09:14→22:33)
[2019-05-11] MEDS: ENOXAPARIN SODIUM 40 MG/0.4 ML SYRINGE SQ SCH (09:17)
[2019-05-11 11:36] VITALS: BP 142/75
[2019-05-11] MEDS: SODIUM CHLORIDE 1,000 MG TAB PO SCH ×2 (12:36→17:27)
[2019-05-11 16:34] VITALS: BP 122/73
[2019-05-11 20:08] VITALS: BP 111/65
[2019-05-12] VITALS (7 sets, daily range): BP systolic 110–130; BP diastolic 60–78
[2019-05-12] MEDS: ZOSYN 3.375GM+NS 50ML 50 ML IV SCH ×3 (04:32→19:43)
[2019-05-12] MEDS: VANCOMYCIN 250MG/5ML ORAL SOLUTION 40ML PO SCH ×6 (04:33→17:36)
[2019-05-12 05:52] LABS: HEMATOCRIT 22.9 % (42-54); MEAN CORPUSCULAR HGB CONC 33.2 g/dL (32.0-36.0); MEAN CORPUSCULAR VOLUME 99.6 fL (79-99); PLATELET COUNT (AUTO) 95 K/uL (130-400); RED CELL DISTRIBUTION WIDTH 19.4 % (11.0-15.5)
[2019-05-12] MEDS: INSULIN HUMULIN R 100 UNIT/ML 3ML SQ SCH ×4 (05:57→20:09)
[2019-05-12 06:02] LABS: CREATININE 0.4 mg/dL (0.5-1.5); POTASSIUM 4.7 mmol/L (3.5-5.1)
[2019-05-12] MEDS: POTASSIUM CHLORIDE 10% ELIXIR 20 MEQ/15 ML UDCUP PO SCH ×3 (07:46→19:43)
[2019-05-12] MEDS: AMIODARONE HCL 200 MG TABLET PO SCH ×2 (09:14→19:44)
[2019-05-12] MEDS: FLUCONAZOLE 400 MG/NS 200 ML 200 ML IV SCH (09:14)
[2019-05-12] MEDS: SODIUM CHLORIDE 1,000 MG TAB PO SCH ×3 (09:14→17:22)
[2019-05-12] MEDS: LACTOBACILLUS RHAMNOSUS GG 1 EACH CAP.SPRINK PO SCH ×3 (09:14→19:43)
[2019-05-12] MEDS: PANTOPRAZOLE SODIUM 40 MG TABLET.DR PO SCH (09:15)
[2019-05-12] MEDS: ENOXAPARIN SODIUM 40 MG/0.4 ML SYRINGE SQ SCH (09:15)
[2019-05-12] MEDS: SPIRONOLACTONE 25 MG TAB PO SCH ×2 (09:15→19:43)
[2019-05-12] MEDS: VANCOMYCIN 1.25 GM in SODIUM CHLORIDE 0.9% 250 ML IV SCH (12:02)
[2019-05-12] MEDS: POTASSIUM CHLORIDE 40 MEQ in SODIUM CHLORIDE 0.9% 1000ML 980 ML IV SCH ×3 (14:51→23:53)
[2019-05-13] MEDS: VANCOMYCIN 1.25 GM in SODIUM CHLORIDE 0.9% 250 ML IV SCH ×2 (00:41→12:27)
[2019-05-13] MEDS: LOPERAMIDE HCL 2 MG CAP PO PRN ×4 (03:02→18:00)
[2019-05-13 03:37] VITALS: BP 114/53
[2019-05-13 04:13] LABS: MEAN CORPUSCULAR HEMOGLOBIN 31.9 pg (27.0-33.0); MEAN CORPUSCULAR HGB CONC 31.7 g/dL (32.0-36.0); MEAN CORPUSCULAR VOLUME 100.4 fL (79-99); PLATELET COUNT (AUTO) 114 K/uL (130-400); RED BLOOD CELL COUNT(AUTO) 2.29 MIL/uL (4.50-6.20); RED CELL DISTRIBUTION WIDTH 19.6 % (11.0-15.5); WHITE BLOOD COUNT (AUTO) 3.7 K/uL (4.8-10.8)
[2019-05-13 04:24] LABS: CREATININE 0.5 mg/dL (0.5-1.5); POTASSIUM 4.3 mmol/L (3.5-5.1)
[2019-05-13] MEDS: ZOSYN 3.375GM+NS 50ML 50 ML IV SCH ×3 (04:33→20:37)
[2019-05-13] MEDS: VANCOMYCIN 250MG/5ML ORAL SOLUTION 40ML PO SCH ×8 (05:19→18:00)
[2019-05-13] MEDS: INSULIN HUMULIN R 100 UNIT/ML 3ML SQ SCH ×4 (05:26→21:00)
[2019-05-13 08:34] VITALS: BP 123/66
[2019-05-13] MEDS: SODIUM CHLORIDE 1,000 MG TAB PO SCH ×3 (09:11→18:00)
[2019-05-13] MEDS: LACTOBACILLUS RHAMNOSUS GG 1 EACH CAP.SPRINK PO SCH ×3 (09:11→20:37)
[2019-05-13] MEDS: PANTOPRAZOLE SODIUM 40 MG TABLET.DR PO SCH (09:11)
[2019-05-13] MEDS: AMIODARONE HCL 200 MG TABLET PO SCH ×2 (09:11→20:37)
[2019-05-13] MEDS: ENOXAPARIN SODIUM 40 MG/0.4 ML SYRINGE SQ SCH (09:12)
[2019-05-13] MEDS: SPIRONOLACTONE 25 MG TAB PO SCH ×2 (09:12→20:37)
[2019-05-13] MEDS: POTASSIUM CHLORIDE 10% ELIXIR 20 MEQ/15 ML UDCUP PO SCH ×3 (09:13→20:37)
[2019-05-13 12:29] VITALS: BP 107/60
[2019-05-13 16:11] VITALS: BP 108/55
[2019-05-13] MEDS ORDERED: SODIUM CHLORIDE 0.9% 100 ML IV ONE (17:50)
[2019-05-13] MEDS: POTASSIUM CHLORIDE 40 MEQ in SODIUM CHLORIDE 0.9% 1000ML 980 ML IV SCH (18:45)
[2019-05-13 20:18] VITALS: BP 113/60
[2019-05-13] MEDS: NITAZOXANIDE 500 MG TAB PO SCH (20:37)
[2019-05-14 00:11] VITALS: BP 127/66
[2019-05-14] MEDS: VANCOMYCIN 1.25 GM in SODIUM CHLORIDE 0.9% 250 ML IV SCH (01:23)
[2019-05-14] MEDS: VANCOMYCIN 250MG/5ML ORAL SOLUTION 40ML PO SCH ×6 (01:31→12:16)
[2019-05-14 02:54] VITALS: BP 113/62
[2019-05-14] MEDS: ZOSYN 3.375GM+NS 50ML 50 ML IV SCH (05:24)
[2019-05-14] MEDS: INSULIN HUMULIN R 100 UNIT/ML 3ML SQ SCH ×4 (06:48→21:00)
[2019-05-14] MEDS: AMIODARONE HCL 200 MG TABLET PO SCH ×2 (07:43→22:06)
[2019-05-14] MEDS: LACTOBACILLUS RHAMNOSUS GG 1 EACH CAP.SPRINK PO SCH ×3 (07:43→22:06)
[2019-05-14] MEDS: SPIRONOLACTONE 25 MG TAB PO SCH ×2 (07:43→22:07)
[2019-05-14] MEDS: PANTOPRAZOLE SODIUM 40 MG TABLET.DR PO SCH (07:43)
[2019-05-14] MEDS: SODIUM CHLORIDE 1,000 MG TAB PO SCH ×3 (07:44→17:00)
[2019-05-14] MEDS: POTASSIUM CHLORIDE 10% ELIXIR 20 MEQ/15 ML UDCUP PO SCH ×3 (07:45→20:15)
[2019-05-14] MEDS: LOPERAMIDE HCL 2 MG CAP PO PRN (07:45)
[2019-05-14] MEDS: POTASSIUM CHLORIDE 40 MEQ in SODIUM CHLORIDE 0.9% 1000ML 980 ML IV SCH ×3 (07:46→23:48)
[2019-05-14] MEDS: ENOXAPARIN SODIUM 40 MG/0.4 ML SYRINGE SQ SCH (07:46)
[2019-05-14] MEDS: NITAZOXANIDE 500 MG TAB PO SCH ×2 (08:14→22:07)
[2019-05-14 08:50] LABS: MEAN CORPUSCULAR HEMOGLOBIN 32.7 pg (27.0-33.0); MEAN CORPUSCULAR HGB CONC 32.8 g/dL (32.0-36.0); MEAN CORPUSCULAR VOLUME 99.6 fL (79-99); PLATELET COUNT (AUTO) 147 K/uL (130-400); RED BLOOD CELL COUNT(AUTO) 2.51 MIL/uL (4.50-6.20); RED CELL DISTRIBUTION WIDTH 19.4 % (11.0-15.5); WHITE BLOOD COUNT (AUTO) 3.8 K/uL (4.8-10.8)
[2019-05-14 09:04] LABS: CREATININE 0.5 mg/dL (0.5-1.5); POTASSIUM 4.5 mmol/L (3.5-5.1)
[2019-05-14 12:34] VITALS: BP 116/63
[2019-05-14 16:39] VITALS: BP 106/65
[2019-05-14 20:26] VITALS: BP 119/73
[2019-05-14 23:40] VITALS: BP 133/72
[2019-05-15] MEDS: POTASSIUM CHLORIDE 40 MEQ in SODIUM CHLORIDE 0.9% 1000ML 980 ML IV SCH ×3 (03:02→20:45)
[2019-05-15 03:47] VITALS: BP 119/72
[2019-05-15] MEDS: INSULIN HUMULIN R 100 UNIT/ML 3ML SQ SCH ×4 (05:44→21:00)
[2019-05-15 08:06] VITALS: BP 108/59
[2019-05-15] MEDS: NITAZOXANIDE 500 MG TAB PO SCH ×2 (08:34→22:01)
[2019-05-15] MEDS: POTASSIUM CHLORIDE 10% ELIXIR 20 MEQ/15 ML UDCUP PO SCH ×3 (08:34→21:28)
[2019-05-15] MEDS: PANTOPRAZOLE SODIUM 40 MG TABLET.DR PO SCH (08:35)
[2019-05-15] MEDS: AMIODARONE HCL 200 MG TABLET PO SCH ×2 (08:35→21:28)
[2019-05-15] MEDS: LACTOBACILLUS RHAMNOSUS GG 1 EACH CAP.SPRINK PO SCH ×3 (08:35→21:29)
[2019-05-15] MEDS: SPIRONOLACTONE 25 MG TAB PO SCH ×2 (08:35→21:27)
[2019-05-15] MEDS: SODIUM CHLORIDE 1,000 MG TAB PO SCH ×3 (08:35→16:37)
[2019-05-15] MEDS: ENOXAPARIN SODIUM 40 MG/0.4 ML SYRINGE SQ SCH (08:37)
[2019-05-15] MEDS: POTASSIUM CHLORIDE 20MEQ/100ML 100 ML IV PRN (09:09)
[2019-05-15 12:39] VITALS: BP 103/64
--- NOTE | 2019-05-15 13:45 | NUR ---
RECEIVED REPORT FROM DONALD CARDONA PT AA0X4. DENIES ANY PAIN/DISCOMFORT. CONTINUOUS PULSE OX 92%-97% PT W RESP EVEN, UNLABORED WITH O2@3L/NC. PT WITH MILD SOB WHEN OVER TALKS AND HE DE SATS ON CONT OX @87%. AT REST, O2 SAT=97%. HOB ELEVATED 30 DEGREES. MENDEZ CATH BAG TO BEDSIDE DRAIN DRAINING YELLOW CLEAR URINE. LAST BOWEL MOVEMENT REPORTS SOFT BM TODAY. WILL CONTINUE TO MONITOR.
--- NOTE | 2019-05-15 14:21 | NUR ---
DC PLAN VERBAL CONSENT RECEIVED COSIGNED WITH FLOOR NURSE. INFO SENT. REP NOTIFIED. UPDATED NOTES, LABS, COVID FORM TODAY. FILLED SCREEN INFORMATION. MOT AND EMS PENDING. Addendum: 05/15/19 at 1424 by ARABELLA ISAAC RN CM Amended: Links added.
[2019-05-15 14:28] VITALS: BP 114/58
[2019-05-15 16:58] VITALS: BP 119/73
[2019-05-15 19:35] VITALS: BP 98/59
[2019-05-16 00:58] VITALS: BP 127/61
[2019-05-16 04:12] VITALS: BP 115/66
[2019-05-16] MEDS: INSULIN HUMULIN R 100 UNIT/ML 3ML SQ SCH ×3 (06:20→16:30)
[2019-05-16] MEDS: POTASSIUM CHLORIDE 40 MEQ in SODIUM CHLORIDE 0.9% 1000ML 980 ML IV SCH (06:21)
[2019-05-16 07:30] VITALS: BP 115/60
[2019-05-16] MEDS: PANTOPRAZOLE SODIUM 40 MG TABLET.DR PO SCH (08:39)
[2019-05-16] MEDS: POTASSIUM CHLORIDE 10% ELIXIR 20 MEQ/15 ML UDCUP PO SCH ×2 (08:39→14:43)
[2019-05-16] MEDS: LACTOBACILLUS RHAMNOSUS GG 1 EACH CAP.SPRINK PO SCH ×2 (08:39→14:43)
[2019-05-16] MEDS: SODIUM CHLORIDE 1,000 MG TAB PO SCH ×3 (08:39→17:08)
[2019-05-16] MEDS: SPIRONOLACTONE 25 MG TAB PO SCH (08:40)
[2019-05-16] MEDS: ENOXAPARIN SODIUM 40 MG/0.4 ML SYRINGE SQ SCH (08:40)
[2019-05-16] MEDS: AMIODARONE HCL 200 MG TABLET PO SCH (08:40)
[2019-05-16] MEDS: NITAZOXANIDE 500 MG TAB PO SCH (08:40)
[2019-05-16 11:00] VITALS: BP 114/60
--- NOTE | 2019-05-16 14:08 | NUR ---
NUTRITION EDUCATION BARBIE provided Malnutrition education, increased energy/protein recommendations. Handouts and materials left with RN d/t Contact Isolation. Coupons for protein/nutritional supplementation provided. 30mL ProMod with meals Recommended. Addendum: 05/16/19 at [address] Amended: Links added.
--- NOTE | 2019-05-16 14:48 | NUR ---
PAPER WORK READY FOR DISCHARGE- MOT SIGNED BY LISSETH AND , ORIGINAL TO [facility], COPY TO CHART COVID SCREENING/VERIFICATION SIGNED MY MD, ORIGINAL TO [facility], COPY TO CHART, MED REQ SENT TO [facility]; 24HR VS/MEDS SHEET SENT WITH CHART EMS FORM COMPLETED & FAXED. D/C ORDERS PLACED RN AWARE AND CHART TAGGED Addendum: 05/16/19 at 1452 by SCAR ELLIS RN CM Amended: Links added.
--- NOTE | 2019-05-16 14:56 | NUR ---
RD FOLLOW UP Pt with poor PO, Ensure, Promod supplementation in place. Pt with significant weight loss since admit. Malnutrition education provided along with supplementation coupons, pending discharge. RD to continue to monitor. Please notify as additional nutrition concerns arise. Thank you. Addendum: 05/16/19 at [address] Amended: Links added.
--- NOTE | 2019-05-16 16:03 | NUR ---
REPORT REPORT GIVEN TO MAXIMINO AT [facility] AT APPROX 1600 HOURS, PROVIDED CALL BACK # IF ANY QUESTIONS. EMS TO BE CONTACTED FOR TRANSPORTATION.
--- NOTE | 2019-05-16 16:07 | NUR ---
[facility] CALLED FOR TRANSPORTATION TO [facility]. ADVISED NEXT IN LINE.
[2019-05-16] MEDS ORDERED: NITAZOXANIDE 500 MG TAB PO SCH (17:00)
--- NOTE | 2019-05-16 17:51 | NUR ---
HOLD PATIENT MAXIMINO BENNETT FROM [facility] CALLED ADVISED TO PLEASE HOLD PATIENT UNTIL CLARIFICATION IS RECEIVED FROM HER DIRECTOR REGARDING PATIENT ON DROPLET PRECAUTIONS. SHE ADVISED SHE WOULD CALL BACK IN ABOUT AN HOUR WITH CLARIFICATION FROM HER DIRECTOR REGARDING ACCEPTING PATIENT.
--- NOTE | 2019-05-16 19:25 | NUR ---
[facility] ARRIVED, REPORT GIVEN AND PATIENT BEING TRANSFERRED TO [facility].
== END 2019-05-16 19:15 | DRG 871 ==
LOC: EDH 18:22 → EDHIP 20:34 → 2CH 05-04 16:40 → 2DH 05-07 19:29 → 4DH 05-15 14:08
PROVIDERS: ADMIT Internal Medicine Hematology & Oncology; ATTEND Internal Medicine Hematology & Oncology
PROC: 30233K1 Transfusion of Nonautologous Frozen Plasma into Peripheral Vein, Percutaneous Approach (ICD-10-PCS; principal; 2019-05-04)
PROC: 30233N1 Transfusion of Nonautologous Red Blood Cells into Peripheral Vein, Percutaneous Approach (ICD-10-PCS; 2019-05-04)
PROC: 05HA33Z Insertion of Infusion Device into Left Brachial Vein, Percutaneous Approach (ICD-10-PCS; 2019-05-05)
DX: A41.9 Sepsis, unspecified organism (principal); R65.21 Severe sepsis with septic shock; J18.9 Pneumonia, unspecified organism; J96.21 Acute and chronic respiratory failure with hypoxia; I50.33 Acute on chronic diastolic (congestive) heart failure; E43 Unspecified severe protein-calorie malnutrition; D61.810 Antineoplastic chemotherapy induced pancytopenia; A04.72 Enterocolitis due to Clostridium difficile, not specified as recurrent; C34.90 Malignant neoplasm of unspecified part of unspecified bronchus or lung; I47.1 Supraventricular tachycardia; Z68.1 Body mass index [BMI] 19.9 or less, adult; C95.90 Leukemia, unspecified not having achieved remission; E87.1 Hypo-osmolality and hyponatremia; C79.9 Secondary malignant neoplasm of unspecified site; I48.91 Unspecified atrial fibrillation; C61 Malignant neoplasm of prostate; C62.90 Malignant neoplasm of unspecified testis, unspecified whether descended or undescended; Z66 Do not resuscitate; E87.6 Hypokalemia; E83.42 Hypomagnesemia; Y95 Nosocomial condition; J43.9 Emphysema, unspecified; D69.59 Other secondary thrombocytopenia; T45.1X5A Adverse effect of antineoplastic and immunosuppressive drugs, initial encounter; Z53.29 Procedure and treatment not carried out because of patient's decision for other reasons; D64.81 Anemia due to antineoplastic chemotherapy; Z74.01 Bed confinement status; Y92.89 Other specified places as the place of occurrence of the external cause
CPT/HCPCS: 36415; 36430; 36600; 71045; 71250; 74018; 80048; 80053; 80202; 81001; 82270; 82550; 82803; 82948; 83605; 83735; 84100; 84132; 84145; 84295; 84484; 85014; 85018; 85025; 85027; 85610; 85730; 86850; 86900; 86901; 86922; 86927; 87040; 87046; 87071; 87205; 87324; 87486; 87581; 87633; 87635; 87798; 87804; 87807; 93005; 94640; 94664; 94667; 94668; 97039; 99291; C1751; C1894; G0378; J0282; J0360; J0692; J1450; J1650; J1940; J1956; J2405; J2543; J3370; J3430; J3475; J3480; J3490; J7030; J7040; J7050; J7060; P9016; P9017